=== PATIENT | male | born 1990 | race Caucasian/White ===

== ENCOUNTER 2017-09-04 09:54 | Emergency (ER) | payer OTHER ==
[2017-09-04 10:01] VITALS: RESP 18
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
[2017-09-04 11:11] VITALS: BP 126/76; PULSE 76; TEMP 98.1
[2017-09-04 11:19] VITALS: O2SAT 96
== END 2017-09-04 11:16 | disposition home or self-care (01) ==
LOC: C.ER 09:54
DX: S60.221A Contusion of right hand, initial encounter (principal); Y04.0XXA Assault by unarmed brawl or fight, initial encounter